=== PATIENT | male | born 1950 | race Caucasian/White ===

== ENCOUNTER → 2020-07-17 10:55 | Outpatient (BNVA) | payer MEDICARE, SELFPAY | PROVIDERS: PCP Internal Medicine; Visit Provider Internal Medicine | DX: E11.65 Type 2 diabetes mellitus with hyperglycemia (principal); E78.5 Hyperlipidemia, unspecified; E55.9 Vitamin D deficiency, unspecified; I10 Essential (primary) hypertension | CPT/HCPCS: 82947; 99202 ==

== ENCOUNTER → 2020-10-25 13:19 | Outpatient (BNVA) | payer MEDICARE, SELFPAY | PROVIDERS: PCP Internal Medicine; Visit Provider Nurse Practitioner Gerontology | DX: E11.42 Type 2 diabetes mellitus with diabetic polyneuropathy (principal); E78.5 Hyperlipidemia, unspecified; I10 Essential (primary) hypertension; E55.9 Vitamin D deficiency, unspecified | CPT/HCPCS: 82947; 99212 ==

== ENCOUNTER → 2021-02-26 10:47 | Outpatient (BNVA) | payer MEDICARE, SELFPAY | PROVIDERS: PCP Internal Medicine; Visit Provider Nurse Practitioner Gerontology | DX: E11.42 Type 2 diabetes mellitus with diabetic polyneuropathy (principal); I10 Essential (primary) hypertension; E78.5 Hyperlipidemia, unspecified; E55.9 Vitamin D deficiency, unspecified; E66.09 Other obesity due to excess calories; F17.290 Nicotine dependence, other tobacco product, uncomplicated; Z68.37 Body mass index [BMI] 37.0-37.9, adult; Z79.84 Long term (current) use of oral hypoglycemic drugs; Z79.899 Other long term (current) drug therapy | CPT/HCPCS: 82947; 83036; Q3014 ==

== ENCOUNTER 2021-05-29 11:08 | Outpatient (REF) | payer MEDICARE, SELFPAY ==
--- NOTE | ~2021-05-29 | XR_ITS ---
EXAMINATION: XR FOOT, LEFT CLINICAL INFORMATION: Left foot pain. COMPARISON: None TECHNIQUE: AP, lateral, and oblique views of the left foot. FINDINGS: A small cortical defect is seen along the medial aspect of the proximal diaphysis of the fourth metatarsal. The remainder the digits are unremarkable. The tarsal bones are normally aligned. Small plantar and retrocalcaneal spurs are seen. The soft tissues are unremarkable. XR/XR foot LT min 3V IMPRESSION: 1. Small cortical defect along the medial aspect of the proximal pharynx of the fourth metatarsal is of indeterminate age. An acute fracture cannot be excluded. Correlate with physical exam. 2. Small degenerative calcaneal spurs.
== END 2021-05-29 11:09 | disposition home or self-care (01) ==
LOC: HO.HMGCX 11:08
PROVIDERS: Visit Provider Internal Medicine
DX: M79.672 Pain in left foot (principal)
CPT/HCPCS: 73630

== ENCOUNTER → 2021-06-11 09:44 | Outpatient (BNVA) | payer MEDICARE, SELFPAY | PROVIDERS: PCP Internal Medicine; Visit Provider Physician Assistant | DX: M79.675 Pain in left toe(s) (principal) | CPT/HCPCS: 99202 ==

== ENCOUNTER 2021-11-04 08:22 | Outpatient (REF) | payer MEDICARE, SELFPAY ==
--- NOTE | ~2021-11-04 | XR_ITS ---
EXAMINATION: XR KNEE, LEFT CLINICAL INFORMATION: Left knee pain, injury. COMPARISON: None TECHNIQUE: Four views of the left knee. FINDINGS: Bones have normal alignment. No fracture, subluxation or joint effusion. Small subchondral cysts of the patella. Small osteophytes at medial tibiofemoral compartment. Overall, mild osteoarthritis of the knee. No intra-articular osteochondral body. Mild scattered atherosclerotic calcification of peripheral vessels. XR/XR knee LT 4V IMPRESSION: No acute findings. No fracture or malalignment at the mildly degenerated knee.
--- NOTE | ~2021-11-04 | XR_ITS ---
EXAMINATION: XR FOOT, LEFT CLINICAL INFORMATION: Left foot pain, injury. COMPARISON: 05/29/2021 TECHNIQUE: 3 views of the left foot. FINDINGS: Bones have normal alignment. An oblique fracture of the proximal phalanx of the fourth digit is new compared to 05/29/2021. There is mild overlap between the proximal and distal phalangeal fragments which makes it difficult to evaluate the fracture line. Difficult to determine whether this is from a recent or more subacute injury. Recommend correlation with the specific date of injury. Otherwise, bones of the forefoot are intact. Small osteophytes of the mildly degenerated great toe MTP joint and interphalangeal joint. Mild osteophytes also noted at other interphalangeal joints. Subchondral cyst is present within the fifth metatarsal head. No suspicious bone lesion. There are calcaneal enthesophytes. XR/XR foot LT min 3V IMPRESSION: * There is a mildly displaced oblique fracture of the proximal phalanx of the fourth digit. Recommend clinical correlation with regards to the specific date of injury. This is new compared to 05/29/2021. 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
== END 2021-11-04 08:23 | disposition home or self-care (01) ==
LOC: HO.HMGCX 08:22
PROVIDERS: PCP Internal Medicine; Visit Provider Internal Medicine
DX: M25.562 Pain in left knee (principal); M79.675 Pain in left toe(s)
CPT/HCPCS: 73564; 73630

== ENCOUNTER → 2021-11-18 09:23 | Outpatient (BNVA) | payer MEDICARE, SELFPAY | PROVIDERS: PCP Internal Medicine; Visit Provider Orthopaedic Surgery | DX: M79.645 Pain in left finger(s) (principal) | CPT/HCPCS: 99202 ==

== ENCOUNTER 2022-01-29 09:44 | Outpatient (REF) | payer MEDICARE, SELFPAY ==
[2022-01-29 11:53] LABS: Prostate Specific Antigen 0.86 ng/mL (<0.05-4.0)
== END 2022-01-29 09:45 | disposition home or self-care (01) ==
LOC: HO.HMGCLDS 09:44
PROVIDERS: PCP Internal Medicine; Visit Provider Physician Assistant
DX: Z12.5 Encounter for screening for malignant neoplasm of prostate (principal); N40.1 Benign prostatic hyperplasia with lower urinary tract symptoms
CPT/HCPCS: 36415; 84153

== ENCOUNTER 2022-07-08 07:51 | Outpatient (REF) | payer MEDICARE, SELFPAY ==
--- NOTE | ~2022-07-08 | XR_ITS ---
EXAMINATION: XR KNEE AP STANDING CLINICAL INFORMATION: Right knee pain COMPARISON: Prior radiographs from 11/04/2021 TECHNIQUE: AP standing view of both knees. [place] view of left knee FINDINGS: Bones have normal alignment. No acute fracture, subluxation or joint effusion. There appears to be an old focus of ossification in the region of the posterior horn of the medial meniscus (i.e., meniscal ossicle). There is chronic mild narrowing of the medial tibiofemoral joint space, and small marginal osteophytes are present at the mildly degenerated patellofemoral compartment. Patella is well-positioned within the trochlea. 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 * Possible ossicle of the posterior horn of the medial meniscus. Query if the patient has any remote outside MRI exams of the knee that previously demonstrated a meniscal root tear.
--- NOTE | ~2022-07-08 | XR_ITS ---
EXAMINATION: XR KNEE AP STANDING CLINICAL INFORMATION: Right knee pain COMPARISON: Prior radiographs from 11/04/2021 TECHNIQUE: AP standing view of both knees. [place] view of left knee FINDINGS: Bones have normal alignment. No acute fracture, subluxation or joint effusion. There appears to be an old focus of ossification in the region of the posterior horn of the medial meniscus (i.e., meniscal ossicle). There is chronic mild narrowing of the medial tibiofemoral joint space, and small marginal osteophytes are present at the mildly degenerated patellofemoral compartment. Patella is well-positioned within the trochlea. 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 * Possible ossicle of the posterior horn of the medial meniscus. Query if the patient has any remote outside MRI exams of the knee that previously demonstrated a meniscal root tear.
== END 2022-07-08 07:52 | disposition home or self-care (01) ==
LOC: HO.HOSX 07:51
PROVIDERS: Visit Provider Physician Assistant
DX: M17.12 Unilateral primary osteoarthritis, left knee (principal); M25.561 Pain in right knee
CPT/HCPCS: 73560; 73565; 99212

== ENCOUNTER 2024-02-23 15:30 | Outpatient (REF) | payer MEDICARE, SELFPAY | END 2024-02-23 15:31 | disposition home or self-care (01) | LOC: HO.CHCLNP 15:30 | PROVIDERS: Visit Provider Internal Medicine | DX: L08.0 Pyoderma (principal); L72.0 Epidermal cyst | CPT/HCPCS: 87070; 87205 ==

== ENCOUNTER 2024-03-02 10:53 | Outpatient (REF) | payer MEDICARE, SELFPAY ==
[2024-03-02 14:15] LABS: MANUAL DIFF FLAG NO
[2024-03-02 14:21] LABS: Basophils Absolute Auto 0.1 X10*3/uL (0.0-0.2); Basophils Percent Auto 0.8 % (0-2); Eosinophils Absolute Auto 0.1 X10*3/uL (0.0-0.4); Eosinophils Percent Auto 1.5 % (0-4); Hematocrit 47.6 % (42.0-52.0); Hemoglobin 15.1 g/dl (14.0-18.0); Imm Gran Abs Auto 0.02 X10*3/uL (0.00-0.03); Imm Gran Pct Auto 0.2 % (0.0-0.4); Lymphocytes Absolute Auto 2.7 X10*3/uL (1.2-4.9); Lymphocytes Percent Auto 29.9 % (20-40); Mean Corpuscular HGB Conc 31.7 g/dl (31.0-36.0); Mean Corpuscular Hemoglobin 26.9 pg (27.0-33.0); Mean Corpuscular Volume 84.7 fL (80.0-98.0); Mean Platelet Volume 10.4 fL (9.4-12.4); Monocytes Absolute Auto 0.5 X10*3/uL (0.1-1.2); Monocytes Percent Auto 5.5 % (2-11); Neutrophils Absolute Auto 5.7 x10*3/uL (2.0-8.3); Neutrophils Percent Auto 62.1 % (45-73); Platelet Count 311 X10*3/uL (160-400); Red Blood Count 5.62 X10*6/uL (4.60-5.80); Red Cell Distribution Width 14.8 % (11.0-16.0); White Blood Count 9.1 X10*3/uL (4.8-10.8)
[2024-03-02 16:16] LABS: Alanine Aminotransferase 8 U/L (0-40); Albumin Level 4.1 g/dL (3.5-5.0); Alkaline Phosphatase 125 U/L (39-117); Anion Gap 12 (12-20); Aspartate Amino Transferase 15 U/L (5-37); Bilirubin Total 0.8 mg/dL (0.0-1.0); Blood Urea Nitrogen 15 mg/dL (9-16); Calcium 9.2 mg/dL (8.4-10.2); Carbon Dioxide 25 mmol/L (22-29); Chloride 106 mmol/L (96-108); Cholesterol 153 mg/dL (<200); Estimated Glomerular Filt Rate 57; Glucose Random 130 mg/dL (60-115); HDL Cholesterol 43 mg/dL (>40); LDL Cholesterol Calculated 89 mg/dL (<100); Potassium 4.7 mmol/L (3.3-5.1); Sodium 138 mmol/L (135-145); Triglycerides 109 mg/dL (<150)
== END 2024-03-02 10:54 | disposition home or self-care (01) ==
LOC: HO.CHCLDS 10:53
PROVIDERS: Visit Provider Internal Medicine
DX: E11.9 Type 2 diabetes mellitus without complications (principal)
CPT/HCPCS: 36415; 80053; 80061; 85025

== ENCOUNTER 2024-10-12 12:50 | Outpatient (AMB) | payer MEDICARE, SELFPAY ==
[2024-10-12 13:30] VITALS: BP 190/64; PULSE 84; O2SAT 98; BMI 34.1
--- NOTE | 2024-10-12 13:30 | A.OFFVIS_ITS ---
Vital Signs 3 10/12/24 13:30 Height 6 ft Weight 251 lb 1.704 oz BMI 34.1 BP 190/64 H Blood Pressure Location Lt brachial Position Sitting Pulse 84 Pulse Source Pulse Oximeter Pulse Oximetry (%) 98 Oxygen Delivery Method Room Air Intake Visit Reasons: Thyroid nodule Intake Note: New patient present today for Thyroid nodule. Creative Perfumer Required: No Accompanied by: Self / Same As Patient Allergies No Known Allergies Allergy (Verified 10/12/24 13:34) Medication List - Last Reconciled 10/12/24 by Fe Vargas MD alcohol swabs 1 pad topical TID amlodipine 10 mg PO DAILY atorvastatin 40 mg PO DAILY blood pressure test kit-large As directed blood sugar diagnostic As directed blood-glucose meter As directed cholecalciferol (vitamin D3) 50 mcg PO DAILY 30 days hydrochlorothiazide 12.5 mg PO DAILY lancets As directed lisinopril 40 mg PO DAILY metformin 850 mg PO BID semaglutide (Rybelsus) 7 mg PO DAILY tamsulosin 0.4 mg PO BID HPI Comments Details: 74-year-old male coming in today for 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 Had a fall in June 2024, Ct scan of spine? i dont have records of this , but per patient was incidentally picked up on that. He had an ultrasound at [facility] in June 2024, I do not have the images available of the ultrasound, however reviewing the report, he has 2 solid hypoechoic nodules on the right lobe, with the largest measuring 1.2 cm. He has 4 nodules on the left side, the largest 1 measuring 1.7 cm which is solid hypoechoic with microcalcifications, TR 5 category and meets criteria for FNA. Other left-sided nodules are less than 1.5 cm in size. No recent TFTs in the chart. Patient currently denies heat or cold intolerance, hair loss, palpitation, anxiety, mood changes, low energy, changes in appearance of eyes or vision changes, tremors, increased diaphoresis or dry skin. ?Does report diarrhea. reports losing 40 lbs in the past 6 months. He is currently homeless since June 2024. 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 Patient denies any difficulty swallowing, pain on swallowing or difficulty breathing. some intermittent hoarsness. Patient denies any history of childhood neck radiation. Denies having ever used lithium, amiodarone or biotin supplements. Patient denies any family history of thyroid cancer or thyroid disease. Physical exam General: sitting comfortably in no acute distress HEENT: normocephalic/atraumatic Neck: supple, palpable 1 cm left-sided nodule Cardiac: normal heart sounds Pulm: normal breath sounds B/L, no added breath sounds Abd: not distended, no tenderness PFSH Medical History (Updated 10/12/24 @ 13:35 by Fe Vargas MD) Multinodular goiter (nontoxic) Obesity due to excess calories Type 2 diabetes mellitus with polyneuropathy BPH (benign prostatic hyperplasia) Vitamin D deficiency HLD (hyperlipidemia) HTN (hypertension) Surgical History History of prostate surgery History of ankle surgery Family History Father No problems noted. 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 Had a fall in June 2024, Ct scan of spine? i dont have records of this , but per patient was incidentally picked up on that. He had an ultrasound at [facility] in June 2024, I do not have the images available of the ultrasound, however reviewing the report, he has 2 solid hypoechoic nodules on the right lobe, with the largest measuring 1.2 cm. He has 4 nodules on the left side, the largest 1 measuring 1.7 cm which is solid hypoechoic with microcalcifications, TR 5 category and meets criteria for FNA. Other left-sided nodules are less than 1.5 cm in size. No recent TFTs in the chart. We will order blood work. I explained that it is common to have thyroid nodules. About 95% of the time these nodules are benign. However if the nodule is > 1 cm in size or suspicious on ultrasound then a fine need aspiration biopsy is recommended. We discussed that a FNAB involves 4-5 passes with a small gauge needle and material obtained is sent off for cytology.If the cytopathology is benign then the nodule will be followed annually with repeat ultrasounds. However if it is suspicious or malignant, we will need to discuss further management. Indeterminate cytology can be further investigated with repeat FNA, genetic testing or empiric lobectomy. Malignant cytology is managed with either lobectomy or total thyroidectomy. We discussed briefly that thyroid cancer is, in most patients, an indolent disease that does not affect mortality. We will arrange for FNA of the left 1.7 cm thyroid nodule at next available opening and patient will follow up with me in clinic thereafter for results and further decision making. Plan: -ordered TSH and free T4 -scheduled for FNA of the left 1.7 cm thyroid nodule and follow up 2 weeks after to discuss results Plan I spent 45 minutes in reviewing the record, seeing the patient and documenting in the medical record. Orders: Orders 2 US biopsy thyroid Today E04.2 - Nontoxic multinodular goiter Thyroid Stimulating Hormone Today E04.2 - Nontoxic multinodular goiter Free T4 (Free Thyroxine) Today E04.2 - Nontoxic multinodular goiter Patient Instructions: We will book you for a thyroid nodule biopsy with me, and a follow up 2 weeks after to discuss results in clinic Do blood work today Coding Level of Care Code New Pt Level 4 (63068) Diagnoses Multinodular goiter (nontoxic) E04.2 Time Spent (min) 45
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
== END 2024-10-12 14:00 | disposition home or self-care (01) ==
LOC: HO.ENCR 12:50
PROVIDERS: PCP Internal Medicine; Visit Provider Student in an Organized Health Care Education/Training Program
DX: E04.2 Nontoxic multinodular goiter (principal)
CPT/HCPCS: 99204

== ENCOUNTER → 2024-10-12 12:50 | Outpatient (BNVA) | payer MEDICARE, SELFPAY | PROVIDERS: PCP Internal Medicine; Visit Provider Student in an Organized Health Care Education/Training Program | DX: E04.2 Nontoxic multinodular goiter (principal) | CPT/HCPCS: 99202 ==

== ENCOUNTER 2024-10-12 16:16 | Outpatient (REF) | payer MEDICARE, SELFPAY ==
[2024-10-12 18:34] LABS: Free T4 (Free Thyroxine) 1.01 ng/dL (0.71-1.85); Thyroid Stimulating Hormone 1.52 uIU/mL (0.32-4.0)
== END 2024-10-12 16:17 | disposition home or self-care (01) ==
LOC: HO.CHCLDS 16:16
PROVIDERS: Visit Provider Student in an Organized Health Care Education/Training Program
DX: E04.2 Nontoxic multinodular goiter (principal)
CPT/HCPCS: 36415; 84439; 84443

== ENCOUNTER 2024-10-18 09:46 | Outpatient (REF) | payer MEDICARE, SELFPAY ==
--- OUTSIDE RECORDS SUMMARY | 2024-10-18 10:10 | XMS_ITS | Encounter Summary ---
Author Organization [employer] Address [address] [facility] [address] [place] [address] Care Team Providers Care Change Control Manager Name Role Phone Chito Israel MD Primary Care Prov ider Encounter Details Date Type Department Care Team (Late st Contact Info) Description 08/21/[address] [facility] PEDS [address] [place], [place] [phone] Madalyn Salmon LPN Social History Tobacco Use Types Packs/Day Years Used Date Smoking Tobacco: Never Assessed Sex and Gender Information Value Date Recorded Sex Assigned at Male 02/16/2022 10:36 AM EDT Legal Sex Male 10:36 AM EDT Gender Identity Male 04/06/2024 2:34 PM EST Sexual Orientation Straight 02/16/2022 10 :36 AM EDT documented as of this encounter Plan of Treatment Not on file documented as of this encounter Visit Diagnoses Not on filedocumented in this encounter Care Teams Change Control Manager Relationship Specialty Start Date End Date Chito Israel MD [address] [place] [address] PCP - General Internal Medicine 06/21/19 documented as of this encounter
--- OUTSIDE RECORDS SUMMARY | 2024-10-18 10:10 | XMS_ITS | Clinical Summary ---
Author Organization 175 [facility] Address [address] [place] [address] Phone Care Team Providers Care Insights Strategist Name Role Phone Chito Israel Primary Care Provide r Allergies No known active allergies Medications No known medications Active Problems No known active problems Encounters Date Type Department Care Team Description 09/25/2024 2:00 PM EDT Office Visit Orthopedic Surgery [facility] [address] [facility] [address] [place] [address] Patricio Hammond, DPM Ingrowing nail (Primary Dx); Acquired hammer toe of right foot; Hammer toe of left foot; Diabetic mononeuropathy simplex (CMS/[facility] V24, CMS/[facility] V28); Type II diabetes mellitus with peripheral circulatory disorder (CMS/[facility] V24, CMS/[facility] V28); Primary osteoarthritis of both feet; Dermatophytosis of nail; Pain in toe of right foot; Pain in toe of left foot 08/23/2024 1:21 PM EDT - 08/23/2024 11:59 PM EDT Hospital Encounter [facility] Xray [address] [place] [address] Low back pain, unspecified Discharge Disposition: Home or Self Care from [...] Date Comments Diabetes mellitus type 2, uncomplicated ([facility] V24, [facility] V28) 10/13/2018 DX:Diabetes mellitus type 2, uncomplicated ([facility]) Hydronephrosis 12/27/2018 DX:Hydronephrosi s; COMMENT: Sees urology; [...] PM EDT Office Visit Orthopedic Surgery - [place] [address] [phone] Patricio Hammond, DPM [address] [address] Health Maintenance Due Date Last Done Comments [...] (HGBA1C) 11/22/2024 05/25/2024, 02/02/2024, 11/24/2018 Influenza Vaccine (#1) 2024 Diabetes: Annual GFR (Glomerular Filtration Rate) [...] 1:45 PM EDT Low back pain, unspecified COMPREHENSIVE METABOLIC PANEL STAT 06/12/2024 5:23 PM [...] and L5-S1. No significant change. Telerad DANIELA ([id number]) -------- FINAL REPORT -------- Dictated By: Anahy Mayorga Dictated Date: 08/23/2024 16:24 ET Assigned Physician: Anahy Mayorga Reviewed and Electronically Signed By: nAahy Mayorga Signed Date: 08/23/2024 16:27 ET Workstation ID: [id number] Transcribed By: Self Edit Transcribed Date: 08/23/2024 [...] at L4-L5 and L5-S1. No significant change. Teleze SUAREZ ([id number]) -------- FINAL REPORT -------- Dictated By: Anahy Mayorga Dictated Date: 08/23/2024 16:24 ET Assigned Physician: Anahy Mayorga Reviewed and Electronically Signed By: Anahy Mayorga Signed Date: 08/23/2024 16:27 ET Workstation ID: [id number] Transcribed By: Self Edit Transcribed Date: 08/23/2024 16:24 ET us Celeste Forbes MD IMG XR PROCEDURES Final Res ult * (ABNORMAL) Comprehensive metabolic panel (06/12/2024 5:23 PM EST) Sodium 137 133 - 145 mmol/L LAB CHEMISTRY METHOD 06/12/2024 6:[address] [facility] Potassium 4.0 3.5 - 5.5 mmol/L LAB CHEMISTRY METHOD 06/12/2024 6:[address] [facility] Chloride 103 96 - 110 mmol/L LAB CHEMISTRY METHOD 06/12/2024 6:[address] [facility] CO2 29 21 - 32 mmol/L LAB CHEMISTRY METHOD 06/12/2024 6:01 PM [facility] Anion Gap 5 3 - 11 LAB CHEMISTRY METHOD 06/12/2024 6:01 PM [facility] Glucose 135(H) 70 - 100 mg/dL LAB CHEMISTRY METHOD 06/12/2024 6:01 PM [facility] BUN 10 5 - 25 mg/dL LAB CHEMISTRY METHOD 06/12/2024 6:01 PM [facility] Creatinine 1.08 0.70 - 1.30 mg/dL LAB CHEMISTRY METHOD 06/12/2024 6:01 PM [facility] eGFR 72 >=60 mL/min/1. 73m2 LAB CHEMISTRY METHOD 06/12/2024 6:01 PM [facility] Comment:Calculation based on the Chronic Kidney Disease Epidemiology Collaboration (CKD-EPI) equation refit without adjustment for race. BUN/Creatinine Ratio 9.3 LAB CHEMISTRY METHOD 06/12/2024 6:01 PM [facility] Calcium 9.4 8.5 - 10.5 mg/dL LAB CHEMISTRY METHOD 06/12/2024 6:01 PM [facility] AST (SGOT) 7(L) 10 - 42 unit/L LAB CHEMISTRY METHOD 06/12/2024 6:01 PM [facility] ALT (SGPT) 16 10 - 60 unit/L LAB CHEMISTRY METHOD 06/12/2024 6:01 PM [facility] Alkaline Phosphatase 136(H) 42 - 121 unit/L LAB CHEMISTRY METHOD 06/12/2024 6:01 PM [facility] Total Protein 7.0 6.0 - 8.0 g/dL LAB CHEMISTRY METHOD 06/12/2024 6:01 PM [facility] Albumin 3.7 3.2 - 5.0 g/dL LAB CHEMISTRY METHOD 06/12/2024 6:01 PM [facility] Total Bilirubin 0.8 0.0 - 1.4 mg/dL LAB CHEMISTRY METHOD 06/12/2024 6:[address] [facility] Blood Venous blood specimen / Unknown Venipuncture / Unknown 06/12/2024 5:23 PM EST 06/12/2024 5:34 PM EST Markus Kincaid MD LAB BLOOD ORDERABLES Final Resu lt [facility] ([facility] [address] [place] [address], * Hepatitis C Screening (11/24/2018) Pathologist [facility] Hepatitis C Screening Abstracted Historical Provider HEALTH MAINTENANCE Final Result * (ABNORMAL) Hemoglobin A1c (11/24/2018) [facility] Hemoglobin A1C 10.1(A) <=6.5 % Blood Venous blood specimen / Unknown Historical Provider LAB BLOOD ORDERABLES Cynthia l Result * (ABNORMAL) Lipid panel (02/26/2016) [facility] LDL/HDL Ratio 5(A) 0 - 4 Triglycerides 350(A) 0 - 150 mg/dL Cholesterol 217(A) 0 - 200 mg/dL HDL 44 >=40 mg/dL LDL Cholesterol 103(A) 0 - 100 mg/dL Blood Venous blood specimen / Unknown Historical Provider LAB BLOOD ORDERABLES Cynthia l Result from Last 3 Months or Most Recently Relevant to Health Maintenance Insurance [employer] [place] - [place] Advance Directives Documents on File Type Date Recorded 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
--- NOTE | 2024-10-18 11:18 | PM.PROC ---
Brief Operative Note Date of procedure: 10/18/24 Pre-op diagnosis: left inferior 1.7 cm thyroid nodule FNA biopsy Post-op diagnosis: same Procedure: THYROID FINE NEEDLE ASPIRATION PROCEDURE NOTE ? PROCEDURE PERFORMED: Ultrasound-guided FNA of thyroid nodule ? OPERATORS: Dr. Fe Vargas ? INDICATION: left inferior 1.7 cm thyroid nodule FNA biopsy ; FNA performed to assess for malignancy ? DESCRIPTION OF PROCEDURE: The indications for FNA (to assess for malignancy) were reviewed with the patient in detail. Potential complications (e.g., bleeding, infection, damage to local structures, absence of clear diagnosis after FNA) were reviewed. Alternatives to FNA including conservative observation or surgery were described. The patient understood and agreed to proceed. This was documented by the signing of the written informed consent form. A time-out was performed to confirm the patient's identity and the site of planned FNA. The nodule of interest was identified using ultrasound (14 MHz linear array probe). The site of FNA was then draped in the usual fashion and carefully cleaned and prepared using alcohol swabs. The skin at the previously-identified site of needle insertion was iced and sprayed with numbing spray. Under ultrasound guidance, _5_ passes were performed using a 1.5-inch, 25-gauge needle, and sample was obtained via capillary action. The needle tip was clearly visualized to be within the nodule at the time of sampling for _4_ of _5_ passes The patient tolerated the procedure well. There were no immediate complications. A small adhesive bandage was applied, and the patient was advised to take acetaminophen (rather than NSAIDs) for any discomfort and to report any signs of inflammation/infection or marked swelling. IMPRESSION: Technically successful ultrasound-guided fine needle aspiration of left inferior 1.7 cm thyroid nodule . PLAN: The patient was advised that I will provide follow-up regarding the cytology result and any subsequent plans. Fe Vargas MD Endocrinology Attending Condition: stable Disposition: same day
== END 2024-10-18 09:47 | disposition home or self-care (01) ==
LOC: HO.US 09:46
PROVIDERS: PCP Internal Medicine; Visit Provider Student in an Organized Health Care Education/Training Program
DX: E04.2 Nontoxic multinodular goiter (principal)
CPT/HCPCS: 10005; 88173; 88305

== ENCOUNTER → 2024-10-18 09:46 | Outpatient (BNV) | payer MEDICARE, SELFPAY | PROVIDERS: PCP Internal Medicine; Visit Provider Student in an Organized Health Care Education/Training Program | DX: E04.1 Nontoxic single thyroid nodule (principal) | CPT/HCPCS: 10005 ==

== ENCOUNTER 2024-11-01 13:06 | Outpatient (AMB) | payer MEDICARE, SELFPAY ==
--- NOTE | 2024-11-01 13:07 | A.OFFVIS_ITS ---
Vital Signs 3 11/01/24 13:08 Height 6 ft Weight 251 lb 5.231 oz BMI 34.1 BP 178/82 H Blood Pressure Location Lt brachial Position Sitting Pulse 86 Pulse Source Pulse Oximeter Pulse Oximetry (%) 97 Oxygen Delivery Method Room Air Intake Visit Reasons: Biopsy f/u Intake Note: Present today for biopsy results. Interim Controller Required: No Accompanied by: Self / Same As Patient Allergies No Known Allergies Allergy (Verified 11/01/24 13:13) HPI Comments Details: 74-year-old male coming in today for follow up of nontoxic multinodular goiter. HPI Had a fall in June 2024, Ct scan of spine? i dont have records of this , but per patient was incidentally picked up on that. He had an ultrasound at [facility] in June 2024, I do not have the images available of the ultrasound, however reviewing the report, he has 2 solid hypoechoic nodules on the right lobe, with the largest measuring 1.2 cm. He has 4 nodules on the left side, the largest 1 measuring 1.7 cm which is solid hypoechoic with microcalcifications, TR 5 category and meets criteria for FNA. Other left-sided nodules are less than 1.5 cm in size. No recent TFTs in the chart. Patient currently denies heat or cold intolerance, hair loss, palpitation, anxiety, mood changes, low energy, changes in appearance of eyes or vision changes, tremors, increased diaphoresis or dry skin. ?Does report diarrhea. reports losing 40 lbs in the past 6 months. He is currently homeless since June 2024. Working with a oncology social worker. Patient denies any difficulty swallowing, pain on swallowing or difficulty breathing. some intermittent hoarsness. Patient denies any history of childhood neck radiation. Denies having ever used lithium, amiodarone or biotin supplements. Patient denies any family history of thyroid cancer or thyroid disease. Interval history 10/12/2024: TSH, free T4 within normal limits 10/18/2024: Status post FNA of the left inferior 1.7 cm nodule which came back as nondiagnostic, [place] category 1. Physical exam General: sitting comfortably in no acute distress HEENT: normocephalic/atraumatic Neck: supple, palpable 1 cm left-sided nodule Cardiac: normal heart sounds Pulm: normal breath sounds B/L, no added breath sounds Abd: not distended, no tenderness Laboratory Tests 10/12/24 16:17 TSH 1.52 Free T4 1.01 [facility] Medical History (Updated 10/12/24 @ 13:35 by Fe Vargas MD) Multinodular goiter (nontoxic) Obesity due to excess calories Type 2 diabetes mellitus with polyneuropathy BPH (benign prostatic hyperplasia) Vitamin D deficiency HLD (hyperlipidemia) HTN (hypertension) Surgical History History of prostate surgery History of ankle surgery Family History Father No problems noted. 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 Had a fall in June 2024, Ct scan of spine? i dont have records of this , but per patient was incidentally picked up on that. He had an ultrasound at [facility] in June 2024, I do not have the images available of the ultrasound, however reviewing the report, he has 2 solid hypoechoic nodules on the right lobe, with the largest measuring 1.2 cm. He has 4 nodules on the left side, the largest 1 measuring 1.7 cm which is solid hypoechoic with microcalcifications, TR 5 category and meets criteria for FNA. Other left-sided nodules are less than 1.5 cm in size. 10/12/2024: TSH, free T4 within normal limits 10/18/2024: Status post FNA of the left inferior 1.7 cm nodule which came back as nondiagnostic, [place] category 1. I discussed with the him that nondiagnostic results yield a 5-20% chance of malignancy. At this time when option is to repeat the biopsy in about 3 months, however he had quite significant difficulty during the biopsy with keeping his head in position, as he has severe neck pain. He also expresses that he is very afraid of needles, and he would not want to repeat the procedure for now. I discussed with him other option is to monitor the nodule for growth with surveillance ultrasounds but there is a possible chance of malignancy. Patient understands that and at this time chooses surveillance monitoring. Plan: -ordered ultrasound of the thyroid to be done in June 2025 with follow up in July 2025 -ordered TSH with reflex free T4 to be done prior to follow up in July 2025 Plan see above Orders: Orders 2 US thyroid 07/02/25 E04.2 - Nontoxic multinodular goiter TSH reflex Free T4 07/02/25 E04.2 - Nontoxic multinodular goiter Patient Instructions: Do ultrasound of the thyroid in June 2025 , someone will call you to schedule this , please make sure it is dome a few weeks prior to your appointment in July 2025, we will discuss results at the appointment Do thyroid blood also a few days prior to next appointment Coding Level of Care Code Est Pt Level 3 (22215) Diagnoses Multinodular goiter (nontoxic) E04.2
[2024-11-01 13:08] VITALS: BP 178/82; PULSE 86; O2SAT 97; BMI 34.1
--- OUTSIDE RECORDS SUMMARY | 2024-11-01 13:57 | XMS_ITS | Encounter Summary ---
Author Organization [employer] Address [address] [place] [address] Care Team Providers Care Metal Fabricating Supervisor Name Role Phone Chito Israel MD Primary Care Prov ider Encounter Details Date Type Department Care Team (Late st Contact Info) Description 08/21/2022 Orders Only [facility] [address] [place], [place] [id number] Madalyn Salmon LPN Social History Tobacco Use [...] on filedocumented in this encounter Care Teams Metal Fabricating Supervisor Relationship Specialty Start Date End Date Chito Israel MD [address] [place] [address] PCP - General Internal Medicine 06/21/19 documented as of this encounter
--- OUTSIDE RECORDS SUMMARY | 2024-11-01 13:57 | XMS_ITS | Clinical Summary ---
Author Organization [address] [facility] Address [address] [place] [address] Phone Care Team Providers Care Human Geography Instructor Name Role Phone Chito Israel Primary Care Provide r Allergies No known active allergies Medications No known medications Active Problems No known active problems Encounters Date Type Department Care Team Description 09/25/2024 2:00 PM EDT Office Visit Orthopedic Surgery [facility] [address] [facility] [address] [place] [address] Patricio Hammond, DPM Ingrowing nail (Primary Dx); Acquired hammer toe of right foot; Hammer toe of left foot; Diabetic mononeuropathy simplex ([facility] V24, [facility] V28); Type II diabetes mellitus with peripheral circulatory disorder ([facility] V24, [facility] V28); Primary osteoarthritis of both feet; Dermatophytosis of nail; Pain in toe of right foot; Pain in toe of left foot 08/23/2024 1:21 PM EDT - 08/23/2024 11:59 PM EDT Hospital Encounter [facility] [address] [place] [address] Low back pain, unspecified Discharge [...] Date Comments Diabetes mellitus type 2, uncomplicated ([facility] V24, [facility] V28) 10/13/2018 DX:Diabetes mellitus type 2, uncomplicated ([facility]) Hydronephrosis 12/27/2018 DX:Hydronephrosi s; COMMENT: Sees urology; [...] PM EDT Office Visit Orthopedic Surgery [place] [address] [id number] Patricio Hammond, DPM [address] [address] Health Maintenance Due Date Last Done Comments [...] and L5-S1. No significant change. Telerad DANIELA ([id number]) -------- FINAL REPORT -------- Dictated By: nAahy Mayorga Dictated Date: 08/23/2024 16:24 ET Assigned Physician: Anahy Mayorga Reviewed and Electronically Signed By: Anahy Mayorga Signed Date: 08/23/2024 16:27 ET Workstation ID: [id number] Transcribed By: Self Edit Transcribed Date: 08/23/2024 [...] and L5-S1. No significant change. Teleze SUAREZ ([id number]) -------- FINAL REPORT -------- Dictated By: Anahy Mayorga Dictated Date: 08/23/2024 16:24 ET Assigned Physician: Anahy Mayorga Reviewed and Electronically Signed By: Anahy Mayorga Signed Date: 08/23/2024 16:27 ET Workstation ID: [id number] Transcribed By: Self Edit Transcribed Date: 08/23/2024 16:24 ET us Celeste Forbes MD IMG XR PROCEDURES Final Res ult * (ABNORMAL) Comprehensive metabolic panel (06/12/2024 5:23 PM EST) Sodium 137 133 - 145 mmol/L LAB CHEMISTRY METHOD 06/12/2024 6:01 PM EST [facility] Potassium 4.0 3.5 - 5.5 mmol/L LAB CHEMISTRY METHOD 06/12/2024 6:01 PM EST [facility] Chloride 103 96 - 110 mmol/L LAB CHEMISTRY METHOD 06/12/2024 6:01 PM EST [facility] CO2 29 21 - 32 mmol/L LAB CHEMISTRY METHOD 06/12/2024 6:01 PM [facility] Anion Gap 5 3 - 11 LAB CHEMISTRY METHOD 06/12/2024 6:01 PM [facility] Glucose 135(H) 70 - 100 mg/dL LAB CHEMISTRY METHOD 06/12/2024 6:01 PM [facility] BUN 10 5 - 25 mg/dL LAB CHEMISTRY METHOD 06/12/2024 6:01 PM [facility] Creatinine 1.08 0.70 - 1.30 mg/dL LAB CHEMISTRY METHOD 06/12/2024 6:01 PM [facility] eGFR 72 >=60 mL/min/1. 73m2 LAB CHEMISTRY METHOD 06/12/2024 6:01 PM [facility] Comment:Calculation based on the Chronic Kidney Disease Epidemiology Collaboration (CKD-EPI) equation refit without adjustment for race. BUN/Creatinine Ratio 9.3 LAB CHEMISTRY METHOD 06/12/2024 6:01 PM [facility] Calcium 9.4 8.5 - 10.5 mg/dL LAB CHEMISTRY METHOD 06/12/2024 6:01 PM [facility] AST (SGOT) 7(L) 10 - 42 unit/L LAB CHEMISTRY METHOD 06/12/2024 6:01 PM [facility] ALT (SGPT) 16 10 - 60 unit/L LAB CHEMISTRY METHOD 06/12/2024 6:01 PM [facility] Alkaline Phosphatase 136(H) 42 - 121 unit/L LAB CHEMISTRY METHOD 06/12/2024 6:01 PM [facility] Total Protein 7.0 6.0 - 8.0 g/dL LAB CHEMISTRY METHOD 06/12/2024 6:01 PM [facility] Albumin 3.7 3.2 - 5.0 g/dL LAB CHEMISTRY METHOD 06/12/2024 6:01 PM [facility] Total Bilirubin 0.8 0.0 - 1.4 mg/dL LAB CHEMISTRY METHOD 06/12/2024 6:01 PM EST [facility] Blood Venous blood specimen / Unknown Venipuncture / Unknown 06/12/2024 5:23 PM EST 06/12/2024 5:34 PM EST Markus Kincaid MD LAB BLOOD ORDERABLES Final Resu lt [facility] ([facility] [address] [place] [address], * Hepatitis C Screening (11/24/2018) Pathologist [facility] Hepatitis C Screening Abstracted Historical Provider HEALTH MAINTENANCE Final Result * (ABNORMAL) Hemoglobin A1c (11/24/2018) [facility] Hemoglobin A1C 10.1(A) <=6.5 % Blood Venous blood specimen / Unknown Historical Provider LAB BLOOD ORDERABLES Cynthia l Result * (ABNORMAL) Lipid panel (02/26/2016) [facility] LDL/HDL Ratio 5(A) 0 - 4 Triglycerides [...] Documents on File Type Date Recorded Patient Registered Veterinary Technician Expl anation Health Care Decision (hx) 10/21/2020 PAZ LUCAS DIRECTIVE Care Teams Human Geography Instructor Relationship Specialty Start Date End Date Chito Israel [address] [place] [id number] PCP - General Internal Medicine 03/08/24
== END 2024-11-01 13:24 | disposition home or self-care (01) ==
LOC: HO.ENCR 13:06
PROVIDERS: PCP Internal Medicine; Visit Provider Student in an Organized Health Care Education/Training Program
DX: E04.2 Nontoxic multinodular goiter (principal)
CPT/HCPCS: 99213

== ENCOUNTER → 2024-11-01 13:06 | Outpatient (BNVA) | payer MEDICARE, SELFPAY | PROVIDERS: PCP Internal Medicine; Visit Provider Student in an Organized Health Care Education/Training Program | DX: E04.2 Nontoxic multinodular goiter (principal) | CPT/HCPCS: 99212 ==